=== PATIENT | female | born 1995 | race Caucasian/White ===

== ENCOUNTER 2018-11-18 19:15 | Emergency (ER) | payer OTHER ==
[~2018-11-18] VITALS: Ht 157.5 cm; Wt 56.4 kg
[2018-11-18 19:27] VITALS: BP 105/71
--- NOTE | 2018-11-18 21:14 | NUR ---
AMBULATORY TO [facility] WITH A STEADY GAIT
[2018-11-18 21:15] LABS: BASOPHILS # (AUTO) 0.07 x10^3/uL (0-0.1); BASOPHILS % (AUTO) 1 % (0-1); EOSINOPHILS # (AUTO) 0.17 x10^3/uL (0-0.4); EOSINOPHILS % (AUTO) 2 % (1-7); LYMPHOCYTES # (AUTO) 2.87 x10^3/uL (1-3.4); LYMPHOCYTES % (AUTO) 36 % (22-44); MD NO; MEAN CORPUSCULAR HGB CONC 32.5 g/dL (32.4-35.8); MEAN CORPUSCULAR VOLUME 80.1 fL (80-100); MEAN PLATELET VOLUME 9.7 fL (7.4-10.4); MONOCYTES # (AUTO) 0.57 x10^3/uL (0.2-0.8); MONOCYTES % (AUTO) 7 % (2-9); NEUTROPHILS % (AUTO) 54 % (42-75); PLATELET COUNT 232 x10^3/uL (130-400); RED BLOOD COUNT 4.64 x10^6/uL (3.82-5.3); RED CELL DISTRIBUTION WIDTH 16.1 % (9.6-15.2)
[2018-11-18 21:27] LABS: ALANINE AMINOTRANSFERASE 28 U/L (12-78); ALBUMIN 3.9 g/dL (3.4-5.0); ANION GAP 8 mmol/L (5-15); CALCIUM 8.6 mg/dL (8.5-10.1); CHLORIDE 105 mmol/L (98-107); CREATININE 0.63 mg/dL (0.55-1.02)
[2018-11-18 21:29] LABS: ALKALINE PHOSPHATASE 42 U/L (45-117); BILIRUBIN,TOTAL 0.5 mg/dL (0.2-1.0); TOTAL PROTEIN 7.5 g/dL (6.4-8.2)
[2018-11-18] MEDS ORDERED: ONDANSETRON ODT 4 MG PO ONE (21:30)
[2018-11-18] MEDS ORDERED: ACETAMINOPHEN 500 MG TABLET PO ONE (21:30)
[2018-11-18] MEDS ORDERED: ONDANSETRON ODT 4 MG ONE (21:33)
[2018-11-18] MEDS ORDERED: ACETAMINOPHEN 500 MG TABLET ONE (21:33)
[2018-11-18 21:41] LABS: HCG UR SG 1.015 (1.003-1.030); MICROSCOPIC INDICATED
[2018-11-18 21:44] LABS: CULTURE INDICATED? NO
--- NOTE | 2018-11-18 22:06 | NUR ---
Patient/Caregiver given discharge instructions and they have confirmed that they understand the instructions. Patient ambulatory with steady gait.
== END 2018-11-18 22:07 | disposition home or self-care (01) ==
LOC: ED 21:47
DX: G89.29 Other chronic pain (principal); R10.31 Right lower quadrant pain; E03.9 Hypothyroidism, unspecified
CPT/HCPCS: 36415; 76830; 80053; 81001; 81025; 85025; 99284

== ENCOUNTER 2019-12-09 12:17 | Emergency (ER) | payer OTHER ==
[~2019-12-09] VITALS: Ht 157.5 cm; Wt 57.9 kg
[2019-12-09] MEDS ORDERED: FAMOTIDINE 20 MG/2 ML ONE (12:57)
[2019-12-09] MEDS ORDERED: ONDANSETRON 2MG/ML, 2ML ONE (12:57)
[2019-12-09] MEDS ORDERED: SODIUM CHLORIDE FLUSH 10ML SYR IVF ONE (13:00)
[2019-12-09] MEDS ORDERED: FAMOTIDINE 20 MG/2 ML IVPush ONE (13:00)
[2019-12-09] MEDS ORDERED: ONDANSETRON 2MG/ML, 2ML IVPush ONE (13:00)
[2019-12-09 13:08] LABS: MICROSCOPIC NOT IND
[2019-12-09 13:17] LABS: BASOPHILS # (AUTO) 0.05 x10^3/uL (0-0.1); BASOPHILS % (AUTO) 1 % (0-1); EOSINOPHILS # (AUTO) 1.23 x10^3/uL (0-0.4); EOSINOPHILS % (AUTO) 19 % (1-7); LYMPHOCYTES # (AUTO) 1.94 x10^3/uL (1-3.4); LYMPHOCYTES % (AUTO) 30 % (22-44); MD NO; MEAN CORPUSCULAR HGB CONC 31.9 g/dL (32.4-35.8); MEAN PLATELET VOLUME 9.2 fL (7.4-10.4); MONOCYTES # (AUTO) 0.39 x10^3/uL (0.2-0.8); MONOCYTES % (AUTO) 6 % (2-9); NEUTROPHILS # (AUTO) 2.89 x10^3/uL (1.8-6.8); NEUTROPHILS % (AUTO) 45 % (42-75); PLATELET COUNT 249 x10^3/uL (130-400); RED BLOOD COUNT 4.25 x10^6/uL (3.82-5.3); RED CELL DISTRIBUTION WIDTH 16.9 % (9.6-15.2)
[2019-12-09 13:17] LABS: CULTURE INDICATED? NO
[2019-12-09 13:28] LABS: ALANINE AMINOTRANSFERASE 20 U/L (12-78); ALBUMIN 3.6 g/dL (3.4-5.0); ANION GAP 7 mmol/L (5-15); CALCIUM 8.4 mg/dL (8.5-10.1); CHLORIDE 110 mmol/L (98-107); CREATININE 0.71 mg/dL (0.55-1.02)
[2019-12-09 13:33] LABS: ALKALINE PHOSPHATASE 36 U/L (45-117); BILIRUBIN,TOTAL 0.3 mg/dL (0.2-1.0); FREE T4 (FREE THYROXINE) 0.85 ng/dL (0.76-1.46); TOTAL PROTEIN 7.3 g/dL (6.4-8.2)
--- NOTE | 2019-12-09 13:35 | NUR ---
to ed from home w/ s.o. c/o nv/d chronic abd pain x2 years. 9/10 burning sensation around entire abd. intermittent diarrhea. sts also has hypothyroid but does not take meds d/t insurance reasons. c/o suicidal ideations sometimes, but denies them at this moment and has not had them today. denies to this rn and [facility] [place]. bs presnet x4. abd soft, diffusely tender/painful. piv est, labs sent/ua sent. meds per jan. awaiting us results. call alberto in reach. as
--- NOTE | 2019-12-09 14:01 | NUR ---
[facility]
--- NOTE | 2019-12-09 14:07 | NUR ---
plan for ct. no change in condition. vss. as
--- NOTE | 2019-12-09 14:31 | NUR ---
pt to ct. fran bauman was in room to discuss w/ pt. as
--- NOTE | 2019-12-09 14:31 | NUR ---
pt reports "a little" less burnign in stomach after meds. as
[2019-12-09] MEDS ORDERED: OMNIPAQUE 350 MG/ML, 100ML BOTTLE ONE (15:06)
[2019-12-09 15:17] VITALS: BP 96/59
--- NOTE | 2019-12-09 15:17 | NUR ---
ct wnl. vss. recheck. as
== END 2019-12-09 16:16 | disposition home or self-care (01) ==
LOC: ED 15:13
DX: R10.33 Periumbilical pain (principal); R19.7 Diarrhea, unspecified; E03.9 Hypothyroidism, unspecified; Z90.49 Acquired absence of other specified parts of digestive tract
CPT/HCPCS: 36415; 74177; 76830; 80053; 81003; 83690; 84439; 84443; 84703; 85025; 96374; 96375; 99284; J2405; J3490; Q9967